=== PATIENT | female | born 1980 | race American Indian/Alaskan Native ===

== ENCOUNTER 2016-08-08 14:49 | Emergency (ER) | payer SELFPAY | END 2016-08-08 22:21 | disposition left against medical advice (07) | LOC: ED 14:49 | DX: K92.0 Hematemesis (principal); Z53.21 Procedure and treatment not carried out due to patient leaving prior to being seen by health care provider ==

== ENCOUNTER 2016-08-09 05:01 | Emergency (ER) | payer SELFPAY ==
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
[2016-08-09] MEDS ORDERED: NORVASC PO ONE (05:30)
[2016-08-09] MEDS ORDERED: NORCO 5/325 PO ONE (05:37)
[2016-08-09 05:47] LABS: Hemoglobin 11.6 gm/dl (10.1-14.3); Mean Corpuscular HGB Conc 33 % (30-34); Mean Corpuscular Hemoglobin 30 pg (28-32); Mean Corpuscular Volume 89 fl (79-97); Platelet Count 318 K/mm3 (140-440); Red Blood Count 3.92 M/mm3 (3.65-5.03); Red Cell Distribution Width 15.1 % (13.2-15.2); White Blood Count 7.3 K/mm3 (4.5-11.0)
[2016-08-09 05:50] VITALS: BP 134/92
[2016-08-09 06:20] LABS: Blood Urea Nitrogen 9 mg/dL (7-17); Calcium 8.5 mg/dL (8.4-10.2); Carbon Dioxide 22 mmol/L (22-30); Glucose 97 mg/dL (65-100)
[2016-08-09 06:21] LABS: Anion Gap 17 mmol/L; Chloride 105.1 mmol/L (98-107); Potassium 3.5 mmol/L (3.6-5.0); Sodium 141 mmol/L (137-145)
[2016-08-09] MEDS ORDERED: NACL ONE (07:33)
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
== END 2016-08-09 08:34 | disposition home or self-care (01) ==
LOC: ED 05:01
DX: S10.91XA Abrasion of unspecified part of neck, initial encounter (principal); I10 Essential (primary) hypertension; Z90.89 Acquired absence of other organs; Y04.8XXA Assault by other bodily force, initial encounter; Y93.89 Activity, other specified; Y99.8 Other external cause status; Y92.89 Other specified places as the place of occurrence of the external cause
CPT/HCPCS: 36415; 70491; 80048; 84703; 85027; 99284; Q9967